=== PATIENT | male | born 1980 | race Hispanic/Latino ===

== ENCOUNTER 2019-03-25 17:32 | Emergency (ER) | payer OTHER, SELFPAY ==
[2019-03-25] MEDS ORDERED: Ibuprofen 200 MG TAB ONE (18:58)
[2019-03-25] MEDS ORDERED: Acetaminophen 500 MG TAB ONE (18:58)
== END 2019-03-25 19:02 | disposition home or self-care (01) ==
LOC: ERS 17:32
DX: S01.01XA Laceration without foreign body of scalp, initial encounter (principal); F17.200 Nicotine dependence, unspecified, uncomplicated; W22.8XXA Striking against or struck by other objects, initial encounter
CPT/HCPCS: 12001

== ENCOUNTER 2019-04-08 17:58 | Emergency (ER) | payer OTHER, SELFPAY ==
--- NOTE | 2019-04-08 19:09 | RAD ---
Right hand 3 views HISTORY: Right hand pain. Injury. 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 No acute fracture, disloc ation, or aggressive osseous erosions. IMPRESSION: No acute osseous abnormalities are demonstrated.
== END 2019-04-08 19:36 | disposition home or self-care (01) ==
LOC: ERS 17:58
DX: S60.141A Contusion of right ring finger with damage to nail, initial encounter (principal); F17.200 Nicotine dependence, unspecified, uncomplicated; W22.8XXA Striking against or struck by other objects, initial encounter